=== PATIENT | male | born 1985 | race American Indian/Alaskan Native ===

== ENCOUNTER 2018-12-13 08:12 | Emergency (ER) | payer OTHER ==
[2018-12-13 08:22] VITALS: BP 140/77
--- NOTE | 2018-12-13 08:26 | Emergency Department Report ---
HPI - General Chief Complaint: Dental/Oral - HPI HPI: 32 yo comes to ER with dental pain r upper and lower. Diffuse disease on exam. Has hurt for 1 day but worse today. no difficulty swallowing. Did not take anything at home. ED Past Medical Hx - Past Medical History Previous Medical History?: No - Surgical History Past Surgical History?: No - Family History Family history: no significant - Medications Home Medications: Home Medications Medication Instructions Recorded Confirmed Last Taken Type Amoxicillin [Trimox CAP] 500 mg PO BID #20 capsule 12/13/18 Unknown Rx Ibuprofen [Motrin] 800 mg PO Q8HR PRN #25 tablet 12/13/18 Unknown Rx ED Review of Systems ROS: Stated complaint: TOOTH INFECTION Other details as noted in HPI Comment: All other systems reviewed and negative Physical Exam - Physical Exam Physical Exam: vss abc intact taking po no trismus controlling secretions no abscess diffuse dental disease- right upper and lower s1s2 lungs cta abd snt ED Medical Decision Making - Medical Decision Making dental pain/disease abc intact vss controlling secretions taking po no abscess no ludwigs dc home with dc plan of care and dmd follow up. Vital Signs 12/13/18 08:21 Temperature 97.7 F Pulse Rate 69 Respiratory 18 Rate Blood Pressure 140/77 O2 Sat by Pulse 100 Oximetry Critical care attestation.: If time is entered above; I have spent that time in minutes in the direct care of this critically ill patient, excluding procedure time. ED Disposition Clinical Impression: Pain, dental, Dental caries Disposition: DC-01 TO HOME OR SELFCARE Is pt being admited?: No Does the pt Need Aspirin: No Condition: Stable Instructions: Dental Caries (ED), Toothache (ED) Additional Instructions: meds as ordered dentist joe Prescriptions: Ibuprofen [Motrin] 800 mg PO Q8HR PRN #25 tablet PRN Reason: Pain , Severe (7-10) Amoxicillin [Trimox CAP] 500 mg PO BID #20 capsule Referrals: [facility] [Outside] - 3-5 Days [facility] [Outside] - 3-5 Days Time of Disposition: 08:25
[2018-12-13] MEDS ORDERED: TORADOL IM ONE (08:27)
== END 2018-12-13 08:55 | disposition home or self-care (01) ==
LOC: ED 08:12
DX: K02.9 Dental caries, unspecified (principal)
CPT/HCPCS: 96372; 99282; J1885